=== PATIENT | male | born 1965 | race Caucasian/White ===

== ENCOUNTER 2017-10-20 21:34 | Emergency (ER) | payer BC | END 2017-10-20 21:51 | disposition home or self-care (01) | LOC: SCSER 21:34 | DX: I10 Essential (primary) hypertension (principal); Z79.899 Other long term (current) drug therapy | CPT/HCPCS: 99283 ==

== ENCOUNTER 2018-02-17 21:47 | Emergency (ER) | payer BC | END 2018-02-17 22:24 | disposition home or self-care (01) | LOC: SCSER 21:47 | DX: K52.9 Noninfective gastroenteritis and colitis, unspecified (principal); E78.5 Hyperlipidemia, unspecified; I10 Essential (primary) hypertension | CPT/HCPCS: 99283 ==

== ENCOUNTER 2024-01-19 20:41 | Emergency (ER) | payer BC | END 2024-01-19 23:59 | disposition home or self-care (01) | LOC: ERS 20:41 | DX: K62.5 Hemorrhage of anus and rectum (principal); I10 Essential (primary) hypertension | CPT/HCPCS: 99282 ==